=== PATIENT | male | born 1955 | race Caucasian/White ===

== ENCOUNTER → 2023-04-12 06:33 | Day surgery (SDC) | payer MEDICARE, SELFPAY ==
[2023-04-12 09:01] LABS: Glucose - Point of Care 163 mg/dl (70-99)
== END ==
LOC: GI 06:33
PROVIDERS: ATTENDING PHYSICIAN Internal Medicine Gastroenterology
DX: Z12.11 Encounter for screening for malignant neoplasm of colon (principal); K63.5 Polyp of colon; K57.30 Diverticulosis of large intestine without perforation or abscess without bleeding; K64.8 Other hemorrhoids; K29.50 Unspecified chronic gastritis without bleeding; K90.0 Celiac disease; Z80.0 Family history of malignant neoplasm of digestive organs
CPT/HCPCS: 45380; 43239; 88305; 82962; 88342